=== PATIENT | female | born 1955 | race Caucasian/White ===

== ENCOUNTER 2024-02-02 15:22 | Emergency (ER) | payer BC, SELFPAY ==
[2024-02-02 15:44] VITALS: BP 146/73; PULSE 69; RESP 20; TEMP 36.4; O2SAT 99
--- NOTE | 2024-02-02 16:08 | ED.EAR ---
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 She completed her abx yesterday but reports she now has pain in the left ear and left maxillary sinus with nasal congestion associated. she denies nasal discharge, fevers or chills and she has no dentalgia at this time. she has not attempted any modifying factors. she denies any other complaints. she states she is here for another z pack Related Data Home Medications Medication Instructions Recorded Confirmed atorvastatin 20 mg tablet 20 mg PO DAILY 02/02/24 02/02/24 levothyroxine 100 mcg tablet 100 mcg PO DAILY 02/02/24 02/02/24 (Synthroid) pantoprazole 40 mg tablet,delayed 40 mg PO DAILY 02/02/24 02/02/24 release Allergies Allergy/AdvReac Type Severity Reaction Status Date / Time Penicillins Allergy Unknown Swelling Verified 02/02/24 15:40 of Lip/Tongue/Throat Review of Systems ENT: Comments: refer to HPI Exam Const: General: healthy appearing, no acute distress and alert Nutritional Appearance: well nourished and obese Orientation/consciousness: patient oriented x3 Limitations: no limitations HENMT: Head: normal to inspection Ears: external ears normal and TM abnormal wth effusion (serous), with fluid behind the TM and retracted Face and sinus: normal facial exam and sinus tenderness maxillary Teeth and gingiva: abnormal tooth and associated gingiva upper left second molar Eyes: Conjunctivae: conjunctivae normal Pupils: Equal, round and reactive pupils present EOM: EOMs intact bilaterally Direct Ophthalmoscopy: no photophobia Neck: Neck: normal visual inspection Resp: Effort & Inspection: normal respiratory effort Auscultation: clear to auscultation bilaterally Cardio: Rate: regular rate Rhythm: regular rhythm Skin: General skin exam: normal color Rashes: no rashes Wounds: no wounds Neuro: General: patient oriented x3, moves all extremities, no meningeal signs, no focal motor deficits and CN's II-XI intact bilaterally Cranial nerves: Yes Nystagmus not present Speech: normal speech Gait exam (Neuro): Normal gait present Course Course Emergency Course: pt is advised Zithromax is unlikely providing symptom relief given it's spectrum of bacterial coverage and the half life of the medication with completion of the abx pack yesterday, indicating treatment failure. Plan to treat with doxycycline, oral steroids, FU with dentist and PCP without fail. Level of Care: Express Care Visit (23270) Vital Signs Vital signs: Vital Signs Temperature 36.4 C 02/02/24 15:44 Pulse Rate 69 02/02/24 15:44 Respiratory Rate 20 02/02/24 15:44 Blood Pressure 146/73 H 02/02/24 15:44 Pulse Oximetry 99 02/02/24 15:44 Oxygen Delivery Room Air 02/02/24 15:44 Temperature 36.4 C 02/02/24 15:44 Pulse Rate 69 02/02/24 15:44 Respiratory Rate 20 02/02/24 15:44 Blood Pressure 146/73 H 02/02/24 15:44 Pulse Oximetry 99 02/02/24 15:44 Oxygen Delivery Room Air 02/02/24 15:44 Medical Decision Making Vital Signs Vital Signs: Vital Signs Temperature 36.4 C 02/02/24 15:44 Pulse Rate 69 02/02/24 15:44 Respiratory Rate 20 02/02/24 15:44 Blood Pressure 146/73 H 02/02/24 15:44 Pulse Oximetry 99 02/02/24 15:44 Oxygen Delivery Room Air 02/02/24 15:44 Temperature 36.4 C 02/02/24 15:44 Pulse Rate 69 02/02/24 15:44 Respiratory Rate 20 02/02/24 15:44 Blood Pressure 146/73 H 02/02/24 15:44 Pulse Oximetry 99 02/02/24 15:44 Oxygen Delivery Room Air 02/02/24 15:44 Discharge Plan Discharge Clinical Impression: Left maxillary sinusitis Patient Disposition: Home, Self-Care Co
== END 2024-02-02 16:32 | disposition home or self-care (01) ==
PROVIDERS: Emergency Provider Nurse Practitioner Family; PCP Internal Medicine Infectious Disease
DX: J32.0 Chronic maxillary sinusitis (principal)
CPT/HCPCS: 99213; G0463